=== PATIENT | male | born 1955 | race Caucasian/White ===

== ENCOUNTER 2018-03-07 13:20 | Outpatient (CLI) | payer OTHER ==
[2018-03-07 13:50] LABS: Potassium 4.6 mmol/L (3.5-5.1)
[2018-03-07 14:04] LABS: Follow-up Chemistry Comp? YES; Follow-up Result - Chemistry REPORT FAXED
== END 2018-03-07 13:21 | disposition home or self-care (01) ==
LOC: NAV LABSP 13:20
PROVIDERS: ATTEND Nurse Practitioner Adult Health
DX: I11.0 Hypertensive heart disease with heart failure (principal); I50.9 Heart failure, unspecified